=== PATIENT | male | born 1940 | race Two or more races ===

== ENCOUNTER 2019-09-14 08:10 | Outpatient (CLI) | payer OTHER ==
[~2019-09-14 08:10] MED LIST: TERAZOSIN HCL2 M1; TESSALON PERLE100 MG PO; TUSSI PRES-B L120 M1 PO; ZITHROMAX TRI-500 MG PO
== END 2019-09-14 09:25 | disposition home or self-care (01) ==
LOC: NUCLEAR 08:10
DX: R07.89 Other chest pain (principal); R94.31 Abnormal electrocardiogram [ECG] [EKG]
CPT/HCPCS: 78452; 93017; A9500; J0153